=== PATIENT | male | born 1985 | race Caucasian/White ===

== ENCOUNTER 2016-03-15 11:31 | Emergency (ER) | payer BC ==
[~2016-03-15] VITALS: Ht 175.3 cm; Wt 120.0 kg
[2016-03-15 11:37] VITALS: Ht 175.3 cm; Wt 120.0 kg
[2016-03-15] MEDS ORDERED: ONDANSETRON (ODT) 4 MG TAB ODT STA (12:18)
[2016-03-15] MEDS ORDERED: KETOROLAC 30 MG INJ IM STA (12:18)
--- NOTE | 2016-03-15 12:26 | ERD ---
ER Documentation Chief Complaint Date/Time DATE: 03/15/16 TIME: 12:22 Chief Complaint NECK PAIN 9/10 STARTED 2 DAYS AGO HPI 30-year-old male no significant past medical history who presents with gradual onset of left paraspinal neck pain. He describes approximately 12-24 hours of worsening pain that is now more severe. He is having difficulty ranging his head to the left. He denies any falls or trauma, no fevers chills or sore throat. ROS All systems reviewed and are negative except as per history of present illness. Medications Home Meds Active Scripts Diazepam* (Valium*) 5 Mg Tablet, 5 MG PO Q8 Y for ANXIETY, #10 TAB Prov:HAM TILLEY MD 03/15/16 Ondansetron (Ondansetron Odt) 4 Mg Tab.rapdis, 4 MG PO Q6H Y for NAUSEA AND/OR VOMITING, #10 TAB Prov:HAM TILLEY MD 03/15/16 Hydrocodone/Acetaminophen (Allerton 10-325 Tablet) 1 Each Tablet, 1 TAB PO Q6H Y for PAIN, #12 TAB Prov:HAM TILLEY MD 03/15/16 Ibuprofen* (Motrin*) 800 Mg Tab, 800 MG PO Q6H Y for PAIN AND OR ELEVATED TEMP, #30 TAB Prov:HAM TILLEY MD 03/15/16 PMhx/Soc Medical and Surgical Hx: pt denies Medical Hx, pt denies Surgical Hx FmHx Family History: No diabetes Physical Exam Vitals Vital Signs Date Time Temp Pulse Resp B/P Pulse Ox O2 Delivery O2 Flow Rate FiO2 03/15/16 11:37 98.2 88 18 163/78 98 Physical Exam General: Well developed, well nourished, slightly uncomfortable Head: Normocephalic, atraumatic. Eyes: EOM intact ENT: Moist mucous membranes, posterior pharynx without swelling or exudates Neck: Focal tenderness along the left paraspinal strap muscle and base of the trapezius muscle. Limited range of motion to the left full range of motion to the right, no midline tenderness deformities or step-offs, no meningismus Respiratory: No respiratory distress Cardiovascular: Good capillary refil Abdominal: Nondistended : Deferred MSK: No edema, no unilateral swelling, 5/5 strength Neurologic: Alert and oriented, moving all extremities, normal speech, steady gait Skin: No rash Psych: Normal mood Results 24 hrs Current Medications Medications (Trade) Dose Ordered Sig/Viktoriya Route PRN Reason Start Time Stop Time Status Last Admin Dose Admin Ketorolac Tromethamine (Toradol) 30 mg ONCE STAT IM 03/15/16 12:18 03/15/16 12:19 DC 03/15/16 12:27 Diazepam (Valium) 5 mg ONCE ONCE PO 03/15/16 12:30 03/15/16 12:31 DC 03/15/16 12:26 Acetaminophen/ Hydrocodone Bitart (Allerton (10/325)) 1 tab ONCE ONCE PO 03/15/16 12:30 03/15/16 12:31 DC 03/15/16 12:26 Ondansetron HCl (Zofran Odt) 4 mg ONCE STAT ODT 03/15/16 12:18 03/15/16 12:19 DC 03/15/16 12:26 Procedures/MDM The patient's clinical exam is very consistent with muscle spasm of the strap muscles of the neck and likely left trapezius muscle. No evidence of meningismus, no signs or symptoms concerning for cervical spine fracture. The patient has no evidence of retropharyngeal abscess or peritonsillar abscess. He is otherwise afebrile and well-appearing. The patient has focal tenderness on exam suggestive of musculoskeletal etiology. The patient will benefit from symptom control including IM Toradol, Valium, Allerton, Zofran. The patient will be reevaluated. This time the patient does not require diagnostic imaging. Again this is very consistent with a musculoskeletal etiology. He is otherwise neurologically intact with no evidence of central cord syndrome. There are no fevers and no signs concerning for epidural abscess or hematoma. The patient was reevaluated improved mobility but still some discomfort. The patient can be safely discharged home. I did discuss return precautions for any worsening symptoms or motor weakness. We discussed follow up with the patient's primary care doctor within 24 to 48 hours as needed. We also discussed return to the emergency room for worsening symptoms or worsening condition. Discharge Medications: [place]erton, Valium, Motrin We discussed the use of narcotics including avoidance of operating heavy machinery and driving as well as its addictive properties. Departure Diagnosis: Primary Impression: Neck muscle spasm Condition: Stable HAM TILLEY, MD Mar 15, 2016 12:26
[2016-03-15] MEDS ORDERED: HYDROCODONE/APAP (10/325) TAB PO ONE (12:30)
[2016-03-15] MEDS ORDERED: DIAZEPAM 5 MG TAB PO ONE (12:30)
[2016-03-15] MEDS ORDERED: IBUP800T25 PO (12:39)
[2016-03-15] MEDS ORDERED: DIAZ-90 PO (12:39)
[2016-03-15] MEDS ORDERED: ONDA4TAB14 PO (12:39)
[2016-03-15] MEDS ORDERED: HYDR-902 PO (12:39)
== END 2016-03-15 13:04 | disposition home or self-care (01) ==
LOC: FTE 11:31
DX: M62.838 Other muscle spasm (principal); F17.210 Nicotine dependence, cigarettes, uncomplicated
CPT/HCPCS: 96372; 99284; J1885